=== PATIENT | male | born 1960 | race Caucasian/White ===

== ENCOUNTER 2017-12-20 05:35 | Day surgery (SDC) | payer OTHER ==
[2017-12-20] MEDS: BUPIVACAINE 0.5% (MPF) 30 ML INJ INJ
[2017-12-20] MEDS: POLYMYXIN/BACITRACIN 1L IRRIG
[2017-12-20] MEDS ORDERED: BUPIVACAINE 0.5% (SDV) 30 ML INJ (06:50)
[2017-12-20] MEDS ORDERED: ONDANSETRON 4 MG INJ IV (08:00)
[2017-12-20] MEDS ORDERED: hydrALAzine 20 MG INJ IV (08:00)
[2017-12-20] MEDS ORDERED: LABETALOL HCL 20MG INJ IV (08:00)
[2017-12-20] MEDS ORDERED: DIPHENHYDRAMINE 50 MG INJ IV (08:00)
[2017-12-20] MEDS ORDERED: EPHEDrine SULFATE 50 MG/5 ML SYG IV (08:00)
[2017-12-20] MEDS ORDERED: MEPERIDINE 25 MG INJ IV (08:00)
[2017-12-20] MEDS ORDERED: MIDAZOLAM 1 MG/ML 2 ML INJ IV (08:00)
[2017-12-20] MEDS ORDERED: ALBUTEROL 0.083% (NEB) 2.5 MG/3 ML AMP HHN (08:00)
[2017-12-20] MEDS ORDERED: OXYCODONE/ACETAMINOPHEN (5/325) TAB PO ×2 (08:00)
[2017-12-20] MEDS ORDERED: FENTAnyl 50 MCG/ML VIAL IV ×3 (08:00)
[2017-12-20] MEDS ORDERED: KETOROLAC 30 MG INJ IV (08:00)
[2017-12-20] MEDS ORDERED: HYDROmorphONE (0.2 MG/ML) 10ML SYG IV ×3 (08:00)
[2017-12-20] MEDS ORDERED: ROCURONIUM 50 MG INJ (08:06)
[2017-12-20] MEDS ORDERED: PROPOFOL 20 ML (08:06)
[2017-12-20] MEDS ORDERED: LIDOCAINE 100 MG SYRINGE (08:06)
[2017-12-20] MEDS ORDERED: CEFAZOLIN 1 GM INJ (08:06)
[2017-12-20] MEDS ORDERED: SUGAMMADEX SODIUM 200 MG/2 ML VIAL IV (08:33)
== END 2017-12-20 12:21 | disposition home or self-care (01) ==
LOC: SDS 05:35
DX: M20.42 Other hammer toe(s) (acquired), left foot (principal); L85.9 Epidermal thickening, unspecified; E11.42 Type 2 diabetes mellitus with diabetic polyneuropathy; Z89.432 Acquired absence of left foot
CPT/HCPCS: 28285; 73630-LT; 82962; 88304; 88311

== ENCOUNTER 2018-01-24 08:01 | Inpatient (IN) | payer OTHER ==
[2018-01-24] MEDS ORDERED: NACL 0.9% 3 ML SYG IV (09:00)
[2018-01-24] MEDS ORDERED: PENDING SANTYL ORDER FOR WOUND CARE XX (11:00)
[2018-01-24] MEDS ORDERED: VANCOMYCIN IV PER PHARMACY XX (11:00)
[2018-01-24] MEDS ORDERED: GLUCOSE GEL 15 GRAM TUBE BUCCAL (11:30)
[2018-01-24] MEDS ORDERED: GLUCAGON 1 MG INJ IM (11:30)
[2018-01-24] MEDS ORDERED: DEXTROSE 50% 50 ML SYRINGE IV ×2 (11:30)
[2018-01-24] MEDS ORDERED: GLUCOSE GEL 15 GRAM TUBE PO ×2 (11:30)
[2018-01-24 11:45] LABS: ADD MAN DIFF? NO
[2018-01-24 11:49] LABS: WHITE BLOOD COUNT 9.5 10^3/ul (4.8-10.8)
[2018-01-24 11:49] LABS: BASOPHIL # 0.1 10^3/ul (0.0-0.1); BASOPHILS % 0.6 % (0.0-2.0); EOSINOPHILS # 0.6 10^3/ul (0.0-0.5); EOSINOPHILS % 6.4 % (0.0-7.0); HEMATOCRIT 33.6 % (42.0-52.0); HEMOGLOBIN 11.4 g/dl (14.0-18.0); LYMPHOCYTES % 20.8 % (15.0-51.0); MEAN CORPUSCULAR HEMOGLOBIN 30.2 pg (29.0-33.0); MEAN CORPUSCULAR HGB CONC 33.9 g/dl (32.0-37.0); MEAN CORPUSCULAR VOLUME 89.1 fl (82.0-101.0); MEAN PLATELET VOLUME 9.2 fl (7.4-10.4); MONOCYTE # 0.9 10^3/ul (0.3-0.9); MONOCYTES % 9.7 % (0.0-11.0); NEUTROPHIL # 5.9 10^3/ul (1.6-7.5); NEUTROPHILS % 62.3 % (39.0-77.0); PLATELET COUNT 237 10^3/UL (140-415); RED BLOOD COUNT 3.77 10^6/ul (4.70-6.10); RED CELL DISTRIBUTION WIDTH 12.7 % (11.5-14.5)
[2018-01-24] MEDS: INSULIN ASPART [NOVOLOG] 3 ML PEN SC ×5 (12:00→21:00)
[2018-01-24 12:14] LABS: ALANINE AMINOTRANSFERASE 26 IU/L (13-69); ALBUMIN 3.9 g/dl (3.3-4.9); ALBUMIN/GLOBULIN RATIO 1.14; ALKALINE PHOSPHATASE 120 IU/L (42-121); ANION GAP 16 (8-16); ASPARTATE AMINO TRANSFERASE 21 IU/L (15-46); BILIRUBIN,INDIRECT 0.3 mg/dl (0-1.1); BILIRUBIN,TOTAL 0.3 mg/dl (0.2-1.3); BLOOD UREA NITROGEN 43 mg/dl (7-20); C-REACTIVE PROTEIN 1.3 mg/dl (0.0-0.9); CALCIUM 9.1 mg/dl (8.4-10.2); CARBON DIOXIDE 26 mmol/L (21-31); CHLORIDE 104 mmol/L (97-110); CREATININE 2.29 mg/dl (0.61-1.24); GLUCOSE 148 mg/dl (70-220); MAGNESIUM 1.9 mg/dl (1.7-2.5); PHOSPHORUS 3.5 mg/dl (2.5-4.9); POTASSIUM 4.6 mmol/L (3.5-5.1); SODIUM 141 mmol/L (135-144); TOTAL PROTEIN 7.3 g/dl (6.1-8.1)
[2018-01-24 12:42] LABS: HEMOGLOBIN A1C 5.9 % (0-5.9)
[2018-01-24] MEDS: VANCOMYCIN 1.5 GM in SOD CHLORIDE 0.9% 250 ML IVPB (12:42)
[2018-01-24 12:58] LABS: ERYTHROCYTE SEDIMENTATION RATE 41 mm/Hr (0-20)
[2018-01-24] MEDS: HEPARIN 5,000 UNIT/0.5 ML VIAL SC ×2 (15:13→21:06)
[2018-01-24] MEDS: FERROUS SULFATE (EC) 325 MG TAB PO (17:41)
[2018-01-24] MEDS: LOSARTAN 50 MG TAB PO (21:03)
[2018-01-25 05:55] LABS: ADD MAN DIFF? NO
[2018-01-25] MEDS: HEPARIN 5,000 UNIT/0.5 ML VIAL SC ×3 (06:04→23:51)
[2018-01-25 06:06] LABS: WHITE BLOOD COUNT 7.1 10^3/ul (4.8-10.8)
[2018-01-25 06:06] LABS: BASOPHILS % 0.6 % (0.0-2.0); EOSINOPHILS # 0.7 10^3/ul (0.0-0.5); EOSINOPHILS % 9.3 % (0.0-7.0); HEMATOCRIT 32.4 % (42.0-52.0); LYMPHOCYTES # 2.2 10^3/ul (0.8-2.9); LYMPHOCYTES % 30.4 % (15.0-51.0); MEAN CORPUSCULAR HEMOGLOBIN 30.5 pg (29.0-33.0); MEAN CORPUSCULAR VOLUME 89.8 fl (82.0-101.0); MEAN PLATELET VOLUME 9.3 fl (7.4-10.4); MONOCYTES % 14.2 % (0.0-11.0); NEUTROPHIL # 3.2 10^3/ul (1.6-7.5); NEUTROPHILS % 45.4 % (39.0-77.0); PLATELET COUNT 230 10^3/UL (140-415); RED BLOOD COUNT 3.61 10^6/ul (4.70-6.10); RED CELL DISTRIBUTION WIDTH 12.4 % (11.5-14.5)
[2018-01-25 06:32] LABS: PHOSPHORUS 3.7 mg/dl (2.5-4.9)
[2018-01-25 06:32] LABS: CHOL/HDL RATIO 1.9 RATIO; CHOLESTEROL 119 mg/dl (100-200); HDL CHOLESTEROL 60 mg/dl (28-71); LDL CHOLESTEROL,CALCULATED 43 mg/dl; MAGNESIUM 1.8 mg/dl (1.7-2.5); TRIGLYCERIDES 81 mg/dl (0-149)
[2018-01-25 06:42] LABS: ANION GAP 13 (8-16); BLOOD UREA NITROGEN 39 mg/dl (7-20); CALCIUM 9.1 mg/dl (8.4-10.2); CARBON DIOXIDE 29 mmol/L (21-31); CHLORIDE 104 mmol/L (97-110); CREATININE 2.12 mg/dl (0.61-1.24); GLUCOSE 63 mg/dl (70-220); SODIUM 141 mmol/L (135-144)
[2018-01-25] MEDS: INSULIN ASPART [NOVOLOG] 3 ML PEN SC ×7 (08:00→20:15)
[2018-01-25] MEDS: FERROUS SULFATE (EC) 325 MG TAB PO ×2 (08:13→17:12)
[2018-01-25] MEDS: MULTIVITAMINS THERAPEUTIC TAB PO (11:58)
[2018-01-25] MEDS: CITALOPRAM 20 MG TAB PO (11:59)
[2018-01-25] MEDS: LOSARTAN 50 MG TAB PO ×2 (12:00→20:39)
[2018-01-25] MEDS: AMLODIPINE 10 MG TAB PO (12:00)
[2018-01-25] MEDS: VANCOMYCIN 1.25 GM in SOD CHLORIDE 0.9% 250 ML IVPB (12:01)
[2018-01-25] MEDS: ASPIRIN 81 MG TAB PO (12:21)
[2018-01-25] MEDS ORDERED: VANCOMYCIN 750 MG in DEXTROSE 5% 150 ML IVPB (13:00)
[2018-01-26] MEDS: HEPARIN 5,000 UNIT/0.5 ML VIAL SC ×3 (05:49→21:59)
[2018-01-26 06:02] LABS: ADD MAN DIFF? NO
[2018-01-26 06:07] LABS: BASOPHILS % 0.6 % (0.0-2.0); EOSINOPHILS # 0.6 10^3/ul (0.0-0.5); HEMATOCRIT 31.8 % (42.0-52.0); HEMOGLOBIN 10.8 g/dl (14.0-18.0); LYMPHOCYTES % 30.3 % (15.0-51.0); MEAN CORPUSCULAR HEMOGLOBIN 30.2 pg (29.0-33.0); MEAN CORPUSCULAR VOLUME 88.8 fl (82.0-101.0); MEAN PLATELET VOLUME 9.1 fl (7.4-10.4); MONOCYTE # 0.9 10^3/ul (0.3-0.9); MONOCYTES % 14.1 % (0.0-11.0); NEUTROPHILS % 45.7 % (39.0-77.0); PLATELET COUNT 232 10^3/UL (140-415); RED BLOOD COUNT 3.58 10^6/ul (4.70-6.10); RED CELL DISTRIBUTION WIDTH 12.4 % (11.5-14.5)
[2018-01-26 06:07] LABS: WHITE BLOOD COUNT 6.6 10^3/ul (4.8-10.8)
[2018-01-26 06:42] LABS: ANION GAP 14 (8-16); BLOOD UREA NITROGEN 47 mg/dl (7-20); CALCIUM 9.2 mg/dl (8.4-10.2); CARBON DIOXIDE 29 mmol/L (21-31); CHLORIDE 104 mmol/L (97-110); CREATININE 2.23 mg/dl (0.61-1.24); GLUCOSE 102 mg/dl (70-220); POTASSIUM 5.6 mmol/L (3.5-5.1); SODIUM 141 mmol/L (135-144)
[2018-01-26 06:52] LABS: MAGNESIUM 1.8 mg/dl (1.7-2.5)
[2018-01-26 06:52] LABS: PHOSPHORUS 4.7 mg/dl (2.5-4.9)
[2018-01-26] MEDS: INSULIN ASPART [NOVOLOG] 3 ML PEN SC ×7 (08:00→21:00)
[2018-01-26] MEDS: FERROUS SULFATE (EC) 325 MG TAB PO ×2 (09:50→18:02)
[2018-01-26] MEDS: ASPIRIN 81 MG TAB PO (09:50)
[2018-01-26] MEDS: CITALOPRAM 20 MG TAB PO (09:50)
[2018-01-26] MEDS: AMLODIPINE 10 MG TAB PO (09:52)
[2018-01-26] MEDS: MULTIVITAMINS THERAPEUTIC TAB PO (09:52)
[2018-01-26] MEDS: NA POLYST SULFON 15 GM/60 ML BTL PO (09:58)
[2018-01-26] MEDS: VANCOMYCIN 1.25 GM in SOD CHLORIDE 0.9% 250 ML IVPB (12:09)
[2018-01-26] MEDS ORDERED: NA POLYST SULFON 15 GM/60 ML BTL PO (12:30)
[2018-01-27 06:11] LABS: ADD MAN DIFF? NO
[2018-01-27 06:18] LABS: BASOPHIL # 0.1 10^3/ul (0.0-0.1); EOSINOPHILS # 0.5 10^3/ul (0.0-0.5); EOSINOPHILS % 8.6 % (0.0-7.0); HEMATOCRIT 31.7 % (42.0-52.0); HEMOGLOBIN 10.6 g/dl (14.0-18.0); LYMPHOCYTES % 32.3 % (15.0-51.0); MEAN CORPUSCULAR HEMOGLOBIN 29.7 pg (29.0-33.0); MEAN CORPUSCULAR HGB CONC 33.4 g/dl (32.0-37.0); MEAN CORPUSCULAR VOLUME 88.8 fl (82.0-101.0); MEAN PLATELET VOLUME 9.3 fl (7.4-10.4); MONOCYTE # 0.9 10^3/ul (0.3-0.9); MONOCYTES % 14.1 % (0.0-11.0); NEUTROPHIL # 2.8 10^3/ul (1.6-7.5); NEUTROPHILS % 43.8 % (39.0-77.0); PLATELET COUNT 236 10^3/UL (140-415); RED BLOOD COUNT 3.57 10^6/ul (4.70-6.10); RED CELL DISTRIBUTION WIDTH 12.3 % (11.5-14.5)
[2018-01-27 06:18] LABS: WHITE BLOOD COUNT 6.3 10^3/ul (4.8-10.8)
[2018-01-27] MEDS: HEPARIN 5,000 UNIT/0.5 ML VIAL SC ×3 (06:36→22:06)
[2018-01-27 06:38] LABS: ANION GAP 10 (8-16); BLOOD UREA NITROGEN 48 mg/dl (7-20); CALCIUM 9.3 mg/dl (8.4-10.2); CARBON DIOXIDE 31 mmol/L (21-31); CHLORIDE 104 mmol/L (97-110); CREATININE 2.31 mg/dl (0.61-1.24); GLUCOSE 111 mg/dl (70-220); SODIUM 139 mmol/L (135-144)
[2018-01-27 06:50] LABS: PHOSPHORUS 4.9 mg/dl (2.5-4.9)
[2018-01-27 06:50] LABS: MAGNESIUM 1.8 mg/dl (1.7-2.5)
[2018-01-27] MEDS: INSULIN ASPART [NOVOLOG] 3 ML PEN SC ×7 (08:00→21:00)
[2018-01-27] MEDS: CITALOPRAM 20 MG TAB PO (08:32)
[2018-01-27] MEDS: FERROUS SULFATE (EC) 325 MG TAB PO ×2 (08:32→17:50)
[2018-01-27] MEDS: AMLODIPINE 10 MG TAB PO (08:32)
[2018-01-27] MEDS: MULTIVITAMINS THERAPEUTIC TAB PO (08:32)
[2018-01-27] MEDS: ASPIRIN 81 MG TAB PO (08:32)
[2018-01-27 12:29] LABS: VANCOMYCIN,TROUGH 19.6 ug/ml (10.0-20.0)
[2018-01-27] MEDS: VANCOMYCIN 750 MG in DEXTROSE 5% 150 ML IVPB (13:20)
[2018-01-27] MEDS: NA POLYST SULFON 15 GM/60 ML BTL PO (17:50)
[2018-01-28] MEDS: HEPARIN 5,000 UNIT/0.5 ML VIAL SC ×3 (05:32→21:35)
[2018-01-28 06:16] LABS: ADD MAN DIFF? NO
[2018-01-28 06:20] LABS: BASOPHILS % 0.6 % (0.0-2.0); EOSINOPHILS # 0.5 10^3/ul (0.0-0.5); EOSINOPHILS % 8.3 % (0.0-7.0); HEMATOCRIT 31.4 % (42.0-52.0); HEMOGLOBIN 10.7 g/dl (14.0-18.0); MEAN CORPUSCULAR HEMOGLOBIN 30.3 pg (29.0-33.0); MEAN CORPUSCULAR HGB CONC 34.1 g/dl (32.0-37.0); MEAN PLATELET VOLUME 9.1 fl (7.4-10.4); MONOCYTE # 0.8 10^3/ul (0.3-0.9); MONOCYTES % 13.2 % (0.0-11.0); NEUTROPHIL # 2.9 10^3/ul (1.6-7.5); NEUTROPHILS % 45.6 % (39.0-77.0); PLATELET COUNT 245 10^3/UL (140-415); RED BLOOD COUNT 3.53 10^6/ul (4.70-6.10); RED CELL DISTRIBUTION WIDTH 12.3 % (11.5-14.5)
[2018-01-28 06:20] LABS: WHITE BLOOD COUNT 6.4 10^3/ul (4.8-10.8)
[2018-01-28 06:38] LABS: ANION GAP 13 (8-16); BLOOD UREA NITROGEN 45 mg/dl (7-20); CALCIUM 8.8 mg/dl (8.4-10.2); CARBON DIOXIDE 29 mmol/L (21-31); CHLORIDE 104 mmol/L (97-110); CREATININE 2.26 mg/dl (0.61-1.24); GLUCOSE 112 mg/dl (70-220); POTASSIUM 4.2 mmol/L (3.5-5.1); SODIUM 142 mmol/L (135-144)
[2018-01-28 06:46] LABS: MAGNESIUM 1.8 mg/dl (1.7-2.5)
[2018-01-28] MEDS: INSULIN ASPART [NOVOLOG] 3 ML PEN SC ×7 (07:57→20:42)
[2018-01-28] MEDS: MULTIVITAMINS THERAPEUTIC TAB PO (08:20)
[2018-01-28] MEDS: FERROUS SULFATE (EC) 325 MG TAB PO ×2 (08:21→17:23)
[2018-01-28] MEDS: ASPIRIN 81 MG TAB PO (08:21)
[2018-01-28] MEDS: CITALOPRAM 20 MG TAB PO (08:21)
[2018-01-28] MEDS: AMLODIPINE 10 MG TAB PO (08:21)
[2018-01-28] MEDS: LIDOCAINE 1% (MPF) 5 ML VIAL SC (11:40)
[2018-01-28] MEDS: SOD CHLORIDE 0.9% 100 ML (12:05)
[2018-01-28] MEDS: VANCOMYCIN 750 MG in DEXTROSE 5% 150 ML IVPB (14:16)
[2018-01-28] MEDS: HYDROCODONE/APAP (5/325) TAB PO (14:26)
[2018-01-28] MEDS: ACETAMINOPHEN 325 MG TAB PO (20:41)
[2018-01-29] MEDS: HEPARIN 5,000 UNIT/0.5 ML VIAL SC ×3 (06:15→21:39)
[2018-01-29 07:13] LABS: ADD MAN DIFF? NO
[2018-01-29 07:21] LABS: WHITE BLOOD COUNT 7.5 10^3/ul (4.8-10.8)
[2018-01-29 07:21] LABS: BASOPHIL # 0.1 10^3/ul (0.0-0.1); BASOPHILS % 0.8 % (0.0-2.0); EOSINOPHILS # 0.6 10^3/ul (0.0-0.5); EOSINOPHILS % 7.7 % (0.0-7.0); HEMATOCRIT 33.2 % (42.0-52.0); HEMOGLOBIN 11.2 g/dl (14.0-18.0); LYMPHOCYTES # 2.4 10^3/ul (0.8-2.9); LYMPHOCYTES % 32.6 % (15.0-51.0); MEAN CORPUSCULAR HEMOGLOBIN 29.8 pg (29.0-33.0); MEAN CORPUSCULAR HGB CONC 33.7 g/dl (32.0-37.0); MEAN CORPUSCULAR VOLUME 88.3 fl (82.0-101.0); MEAN PLATELET VOLUME 9.1 fl (7.4-10.4); MONOCYTE # 0.8 10^3/ul (0.3-0.9); MONOCYTES % 11.3 % (0.0-11.0); NEUTROPHIL # 3.5 10^3/ul (1.6-7.5); NEUTROPHILS % 47.2 % (39.0-77.0); PLATELET COUNT 253 10^3/UL (140-415); RED BLOOD COUNT 3.76 10^6/ul (4.70-6.10); RED CELL DISTRIBUTION WIDTH 12.5 % (11.5-14.5)
[2018-01-29 07:44] LABS: MAGNESIUM 1.9 mg/dl (1.7-2.5)
[2018-01-29 07:44] LABS: PHOSPHORUS 4.3 mg/dl (2.5-4.9)
[2018-01-29 07:47] LABS: ANION GAP 15 (8-16); BLOOD UREA NITROGEN 60 mg/dl (7-20); CALCIUM 9.4 mg/dl (8.4-10.2); CARBON DIOXIDE 26 mmol/L (21-31); CHLORIDE 103 mmol/L (97-110); CREATININE 2.22 mg/dl (0.61-1.24); GLUCOSE 137 mg/dl (70-220); POTASSIUM 4.6 mmol/L (3.5-5.1); SODIUM 139 mmol/L (135-144)
[2018-01-29] MEDS: INSULIN ASPART [NOVOLOG] 3 ML PEN SC ×7 (07:58→21:00)
[2018-01-29] MEDS: FERROUS SULFATE (EC) 325 MG TAB PO ×2 (08:18→17:24)
[2018-01-29] MEDS: ASPIRIN 81 MG TAB PO (08:18)
[2018-01-29] MEDS: MULTIVITAMINS THERAPEUTIC TAB PO (08:18)
[2018-01-29] MEDS: CITALOPRAM 20 MG TAB PO (08:18)
[2018-01-29] MEDS: AMLODIPINE 10 MG TAB PO (08:19)
[2018-01-29] MEDS: SOD CHLORIDE 0.9% 1,000 ML IV (09:11)
[2018-01-29] MEDS: VANCOMYCIN 750 MG in DEXTROSE 5% 150 ML IVPB (14:11)
[2018-01-30] MEDS: HEPARIN 5,000 UNIT/0.5 ML VIAL SC ×3 (06:17→22:07)
[2018-01-30 07:28] LABS: ANION GAP 14 (8-16); BLOOD UREA NITROGEN 66 mg/dl (7-20); CALCIUM 9.2 mg/dl (8.4-10.2); CARBON DIOXIDE 25 mmol/L (21-31); CHLORIDE 105 mmol/L (97-110); CREATININE 2.03 mg/dl (0.61-1.24); GLUCOSE 103 mg/dl (70-220); POTASSIUM 4.7 mmol/L (3.5-5.1); SODIUM 139 mmol/L (135-144)
[2018-01-30 07:35] LABS: MAGNESIUM 1.9 mg/dl (1.7-2.5)
[2018-01-30] MEDS: FERROUS SULFATE (EC) 325 MG TAB PO ×2 (08:49→18:05)
[2018-01-30] MEDS: AMLODIPINE 10 MG TAB PO (08:50)
[2018-01-30] MEDS: MULTIVITAMINS THERAPEUTIC TAB PO (08:50)
[2018-01-30] MEDS: CITALOPRAM 20 MG TAB PO (08:50)
[2018-01-30] MEDS: ASPIRIN 81 MG TAB PO (08:50)
[2018-01-30] MEDS: INSULIN ASPART [NOVOLOG] 3 ML PEN SC ×7 (08:52→21:00)
[2018-01-30] MEDS: DAPTOMYCIN 300 MG in SOD CHLORIDE 0.9% 100 ML IVPB (14:55)
[2018-01-31] MEDS: LEVOFLOXACIN 250 MG TAB PO (06:45)
[2018-01-31] MEDS: HEPARIN 5,000 UNIT/0.5 ML VIAL SC ×3 (06:46→21:59)
[2018-01-31 06:48] LABS: ANION GAP 15 (8-16); BLOOD UREA NITROGEN 82 mg/dl (7-20); CALCIUM 9.3 mg/dl (8.4-10.2); CARBON DIOXIDE 25 mmol/L (21-31); CHLORIDE 104 mmol/L (97-110); CREATININE 2.42 mg/dl (0.61-1.24); GLUCOSE 103 mg/dl (70-220); POTASSIUM 4.7 mmol/L (3.5-5.1); SODIUM 139 mmol/L (135-144)
[2018-01-31] MEDS: INSULIN ASPART [NOVOLOG] 3 ML PEN SC ×7 (08:00→21:02)
[2018-01-31] MEDS: FERROUS SULFATE (EC) 325 MG TAB PO ×2 (08:01→17:36)
[2018-01-31] MEDS: AMLODIPINE 10 MG TAB PO (09:03)
[2018-01-31] MEDS: CITALOPRAM 20 MG TAB PO (09:03)
[2018-01-31] MEDS: MULTIVITAMINS THERAPEUTIC TAB PO (09:03)
[2018-01-31] MEDS: ASPIRIN 81 MG TAB PO (09:03)
[2018-01-31] MEDS: SOD CHLORIDE 0.9% 1,000 ML IV (11:12)
[2018-01-31] MEDS: DAPTOMYCIN 300 MG in SOD CHLORIDE 0.9% 100 ML IVPB (13:20)
[2018-02-01] MEDS: SOD CHLORIDE 0.9% 1,000 ML IV ×3 (00:26→23:37)
[2018-02-01] MEDS: LEVOFLOXACIN 250 MG TAB PO (05:38)
[2018-02-01] MEDS: HEPARIN 5,000 UNIT/0.5 ML VIAL SC ×3 (05:39→21:25)
[2018-02-01 06:07] LABS: ADD MAN DIFF? NO
[2018-02-01 06:10] LABS: WHITE BLOOD COUNT 6.3 10^3/ul (4.8-10.8)
[2018-02-01 06:10] LABS: BASOPHIL # 0.1 10^3/ul (0.0-0.1); BASOPHILS % 0.8 % (0.0-2.0); EOSINOPHILS # 0.4 10^3/ul (0.0-0.5); EOSINOPHILS % 6.5 % (0.0-7.0); HEMATOCRIT 29.5 % (42.0-52.0); LYMPHOCYTES % 31.4 % (15.0-51.0); MEAN CORPUSCULAR HEMOGLOBIN 30.2 pg (29.0-33.0); MEAN CORPUSCULAR HGB CONC 33.9 g/dl (32.0-37.0); MEAN CORPUSCULAR VOLUME 89.1 fl (82.0-101.0); MEAN PLATELET VOLUME 9.3 fl (7.4-10.4); MONOCYTE # 0.8 10^3/ul (0.3-0.9); MONOCYTES % 12.8 % (0.0-11.0); NEUTROPHIL # 3.1 10^3/ul (1.6-7.5); NEUTROPHILS % 48.2 % (39.0-77.0); PLATELET COUNT 216 10^3/UL (140-415); RED BLOOD COUNT 3.31 10^6/ul (4.70-6.10); RED CELL DISTRIBUTION WIDTH 12.8 % (11.5-14.5)
[2018-02-01 06:27] LABS: ANION GAP 15 (8-16); BLOOD UREA NITROGEN 75 mg/dl (7-20); CALCIUM 8.8 mg/dl (8.4-10.2); CARBON DIOXIDE 23 mmol/L (21-31); CHLORIDE 107 mmol/L (97-110); GLUCOSE 111 mg/dl (70-220); POTASSIUM 4.7 mmol/L (3.5-5.1); SODIUM 140 mmol/L (135-144)
[2018-02-01 07:02] LABS: CREATINE KINASE 49 IU/L (23-200)
[2018-02-01] MEDS: INSULIN ASPART [NOVOLOG] 3 ML PEN SC ×7 (08:00→21:00)
[2018-02-01] MEDS: FERROUS SULFATE (EC) 325 MG TAB PO ×2 (08:32→17:21)
[2018-02-01] MEDS: ASPIRIN 81 MG TAB PO (08:33)
[2018-02-01] MEDS: CITALOPRAM 20 MG TAB PO (08:35)
[2018-02-01] MEDS: AMLODIPINE 10 MG TAB PO (08:36)
[2018-02-01] MEDS: MULTIVITAMINS THERAPEUTIC TAB PO (08:37)
[2018-02-01] MEDS: DAPTOMYCIN 500 MG in SOD CHLORIDE 0.9% 100 ML IVPB (12:20)
[2018-02-01] MEDS: HYDROCODONE/APAP (5/325) TAB PO (16:01)
[2018-02-02] MEDS: LEVOFLOXACIN 250 MG TAB PO (05:07)
[2018-02-02] MEDS: HEPARIN 5,000 UNIT/0.5 ML VIAL SC ×3 (05:09→20:34)
[2018-02-02 06:51] LABS: ADD MAN DIFF? NO
[2018-02-02 06:56] LABS: BASOPHIL # 0.1 10^3/ul (0.0-0.1); BASOPHILS % 0.7 % (0.0-2.0); EOSINOPHILS # 0.5 10^3/ul (0.0-0.5); EOSINOPHILS % 6.4 % (0.0-7.0); HEMATOCRIT 30.5 % (42.0-52.0); HEMOGLOBIN 10.3 g/dl (14.0-18.0); LYMPHOCYTES # 2.2 10^3/ul (0.8-2.9); LYMPHOCYTES % 30.7 % (15.0-51.0); MEAN CORPUSCULAR HEMOGLOBIN 30.2 pg (29.0-33.0); MEAN CORPUSCULAR HGB CONC 33.8 g/dl (32.0-37.0); MEAN CORPUSCULAR VOLUME 89.4 fl (82.0-101.0); MEAN PLATELET VOLUME 9.6 fl (7.4-10.4); MONOCYTE # 0.8 10^3/ul (0.3-0.9); MONOCYTES % 11.7 % (0.0-11.0); NEUTROPHIL # 3.6 10^3/ul (1.6-7.5); NEUTROPHILS % 50.2 % (39.0-77.0); PLATELET COUNT 223 10^3/UL (140-415); RED BLOOD COUNT 3.41 10^6/ul (4.70-6.10); RED CELL DISTRIBUTION WIDTH 12.7 % (11.5-14.5)
[2018-02-02 06:56] LABS: WHITE BLOOD COUNT 7.2 10^3/ul (4.8-10.8)
[2018-02-02 07:39] LABS: ANION GAP 12 (8-16); BLOOD UREA NITROGEN 72 mg/dl (7-20); CALCIUM 9.1 mg/dl (8.4-10.2); CARBON DIOXIDE 25 mmol/L (21-31); CHLORIDE 106 mmol/L (97-110); CREATININE 2.28 mg/dl (0.61-1.24); GLUCOSE 123 mg/dl (70-220); POTASSIUM 4.7 mmol/L (3.5-5.1); SODIUM 138 mmol/L (135-144)
[2018-02-02] MEDS: INSULIN ASPART [NOVOLOG] 3 ML PEN SC ×7 (08:29→20:35)
[2018-02-02] MEDS: ASPIRIN 81 MG TAB PO (08:31)
[2018-02-02] MEDS: MULTIVITAMINS THERAPEUTIC TAB PO (08:31)
[2018-02-02] MEDS: CITALOPRAM 20 MG TAB PO (08:31)
[2018-02-02] MEDS: FERROUS SULFATE (EC) 325 MG TAB PO ×2 (08:31→17:43)
[2018-02-02] MEDS: AMLODIPINE 10 MG TAB PO (08:34)
[2018-02-02] MEDS: SOD CHLORIDE 0.9% 1,000 ML IV (11:14)
[2018-02-02] MEDS: DAPTOMYCIN 500 MG in SOD CHLORIDE 0.9% 100 ML IVPB (12:04)
[2018-02-03] MEDS: SOD CHLORIDE 0.9% 1,000 ML IV ×2 (01:30→05:28)
[2018-02-03] MEDS: LEVOFLOXACIN 250 MG TAB PO (05:28)
[2018-02-03] MEDS: HEPARIN 5,000 UNIT/0.5 ML VIAL SC ×3 (05:29→21:16)
[2018-02-03] MEDS: INSULIN ASPART [NOVOLOG] 3 ML PEN SC ×7 (08:00→21:00)
[2018-02-03] MEDS: FERROUS SULFATE (EC) 325 MG TAB PO ×2 (08:10→17:20)
[2018-02-03] MEDS: CITALOPRAM 20 MG TAB PO (08:11)
[2018-02-03] MEDS: ASPIRIN 81 MG TAB PO (08:11)
[2018-02-03] MEDS: AMLODIPINE 10 MG TAB PO (08:11)
[2018-02-03] MEDS: MULTIVITAMINS THERAPEUTIC TAB PO (08:15)
[2018-02-03] MEDS: LACTOBACILLUS RHAMNOSUS CAP PO ×2 (11:00→21:15)
[2018-02-03] MEDS ORDERED: BISACODYL 10 MG SUPP PR (11:00)
[2018-02-03] MEDS: DAPTOMYCIN 500 MG in SOD CHLORIDE 0.9% 100 ML IVPB (12:13)
[2018-02-03] MEDS: DOCUSATE SODIUM 100 MG CAP PO (12:17)
[2018-02-04] MEDS: SOD CHLORIDE 0.9% 1,000 ML IV (00:47)
[2018-02-04] MEDS: LEVOFLOXACIN 250 MG TAB PO (06:03)
[2018-02-04] MEDS: HEPARIN 5,000 UNIT/0.5 ML VIAL SC ×3 (06:11→20:58)
[2018-02-04 06:25] LABS: ADD MAN DIFF? NO
[2018-02-04 06:31] LABS: BASOPHIL # 0.1 10^3/ul (0.0-0.1); BASOPHILS % 0.7 % (0.0-2.0); EOSINOPHILS # 0.5 10^3/ul (0.0-0.5); EOSINOPHILS % 7.4 % (0.0-7.0); HEMATOCRIT 30.2 % (42.0-52.0); HEMOGLOBIN 10.2 g/dl (14.0-18.0); LYMPHOCYTES # 2.4 10^3/ul (0.8-2.9); LYMPHOCYTES % 34.2 % (15.0-51.0); MEAN CORPUSCULAR HEMOGLOBIN 29.7 pg (29.0-33.0); MEAN CORPUSCULAR HGB CONC 33.8 g/dl (32.0-37.0); MEAN PLATELET VOLUME 9.5 fl (7.4-10.4); MONOCYTE # 0.8 10^3/ul (0.3-0.9); MONOCYTES % 11.6 % (0.0-11.0); NEUTROPHIL # 3.2 10^3/ul (1.6-7.5); NEUTROPHILS % 45.7 % (39.0-77.0); PLATELET COUNT 213 10^3/UL (140-415); RED BLOOD COUNT 3.43 10^6/ul (4.70-6.10); RED CELL DISTRIBUTION WIDTH 12.8 % (11.5-14.5)
[2018-02-04 07:35] LABS: ANION GAP 10 (8-16); BLOOD UREA NITROGEN 55 mg/dl (7-20); CARBON DIOXIDE 27 mmol/L (21-31); CHLORIDE 109 mmol/L (97-110); CREATININE 2.24 mg/dl (0.61-1.24); GLUCOSE 112 mg/dl (70-220); POTASSIUM 4.6 mmol/L (3.5-5.1); SODIUM 141 mmol/L (135-144)
[2018-02-04] MEDS: FERROUS SULFATE (EC) 325 MG TAB PO ×2 (08:06→17:32)
[2018-02-04] MEDS: ASPIRIN 81 MG TAB PO (08:06)
[2018-02-04] MEDS: CITALOPRAM 20 MG TAB PO (08:06)
[2018-02-04] MEDS: LACTOBACILLUS RHAMNOSUS CAP PO ×2 (08:06→20:56)
[2018-02-04] MEDS: MULTIVITAMINS THERAPEUTIC TAB PO (08:06)
[2018-02-04] MEDS: AMLODIPINE 10 MG TAB PO (08:07)
[2018-02-04] MEDS: INSULIN ASPART [NOVOLOG] 3 ML PEN SC ×7 (08:11→21:00)
[2018-02-04] MEDS: DAPTOMYCIN 500 MG in SOD CHLORIDE 0.9% 100 ML IVPB (12:14)
[2018-02-05 06:00] LABS: ADD MAN DIFF? NO
[2018-02-05] MEDS: LEVOFLOXACIN 250 MG TAB PO (06:06)
[2018-02-05] MEDS: HEPARIN 5,000 UNIT/0.5 ML VIAL SC ×3 (06:10→22:13)
[2018-02-05 06:14] LABS: WHITE BLOOD COUNT 6.9 10^3/ul (4.8-10.8)
[2018-02-05 06:14] LABS: BASOPHIL # 0.1 10^3/ul (0.0-0.1); BASOPHILS % 0.7 % (0.0-2.0); EOSINOPHILS # 0.5 10^3/ul (0.0-0.5); EOSINOPHILS % 7.8 % (0.0-7.0); HEMATOCRIT 31.3 % (42.0-52.0); HEMOGLOBIN 10.5 g/dl (14.0-18.0); LYMPHOCYTES # 2.2 10^3/ul (0.8-2.9); LYMPHOCYTES % 32.4 % (15.0-51.0); MEAN CORPUSCULAR HEMOGLOBIN 29.9 pg (29.0-33.0); MEAN CORPUSCULAR HGB CONC 33.5 g/dl (32.0-37.0); MEAN CORPUSCULAR VOLUME 89.2 fl (82.0-101.0); MEAN PLATELET VOLUME 9.5 fl (7.4-10.4); MONOCYTE # 0.7 10^3/ul (0.3-0.9); MONOCYTES % 10.6 % (0.0-11.0); NEUTROPHIL # 3.3 10^3/ul (1.6-7.5); NEUTROPHILS % 47.9 % (39.0-77.0); PLATELET COUNT 213 10^3/UL (140-415); RED BLOOD COUNT 3.51 10^6/ul (4.70-6.10); RED CELL DISTRIBUTION WIDTH 12.8 % (11.5-14.5)
[2018-02-05 06:50] LABS: ANION GAP 12 (8-16); BLOOD UREA NITROGEN 68 mg/dl (7-20); CALCIUM 9.2 mg/dl (8.4-10.2); CARBON DIOXIDE 26 mmol/L (21-31); CHLORIDE 107 mmol/L (97-110); CREATININE 2.34 mg/dl (0.61-1.24); GLUCOSE 115 mg/dl (70-220); POTASSIUM 4.6 mmol/L (3.5-5.1); SODIUM 140 mmol/L (135-144)
[2018-02-05] MEDS: INSULIN ASPART [NOVOLOG] 3 ML PEN SC ×7 (07:55→21:00)
[2018-02-05] MEDS: CITALOPRAM 20 MG TAB PO (08:21)
[2018-02-05] MEDS: ASPIRIN 81 MG TAB PO (08:21)
[2018-02-05] MEDS: LACTOBACILLUS RHAMNOSUS CAP PO ×2 (08:21→21:07)
[2018-02-05] MEDS: MULTIVITAMINS THERAPEUTIC TAB PO (08:21)
[2018-02-05] MEDS: FERROUS SULFATE (EC) 325 MG TAB PO ×2 (08:21→18:02)
[2018-02-05] MEDS: AMLODIPINE 10 MG TAB PO (08:22)
[2018-02-05] MEDS: DAPTOMYCIN 500 MG in SOD CHLORIDE 0.9% 100 ML IVPB (12:19)
[2018-02-06 05:19] LABS: ADD MAN DIFF? NO
[2018-02-06 05:22] LABS: BASOPHILS % 0.4 % (0.0-2.0); EOSINOPHILS # 0.5 10^3/ul (0.0-0.5); EOSINOPHILS % 7.4 % (0.0-7.0); HEMATOCRIT 31.3 % (42.0-52.0); HEMOGLOBIN 10.5 g/dl (14.0-18.0); LYMPHOCYTES # 2.2 10^3/ul (0.8-2.9); LYMPHOCYTES % 32.5 % (15.0-51.0); MEAN CORPUSCULAR HEMOGLOBIN 29.7 pg (29.0-33.0); MEAN CORPUSCULAR HGB CONC 33.5 g/dl (32.0-37.0); MEAN CORPUSCULAR VOLUME 88.7 fl (82.0-101.0); MEAN PLATELET VOLUME 9.4 fl (7.4-10.4); MONOCYTE # 0.8 10^3/ul (0.3-0.9); MONOCYTES % 11.6 % (0.0-11.0); NEUTROPHIL # 3.3 10^3/ul (1.6-7.5); PLATELET COUNT 216 10^3/UL (140-415); RED BLOOD COUNT 3.53 10^6/ul (4.70-6.10)
[2018-02-06 05:22] LABS: WHITE BLOOD COUNT 6.8 10^3/ul (4.8-10.8)
[2018-02-06] MEDS: LEVOFLOXACIN 250 MG TAB PO (05:47)
[2018-02-06 05:48] LABS: ANION GAP 14 (8-16); BLOOD UREA NITROGEN 65 mg/dl (7-20); CALCIUM 9.3 mg/dl (8.4-10.2); CARBON DIOXIDE 24 mmol/L (21-31); CHLORIDE 107 mmol/L (97-110); CREATININE 2.46 mg/dl (0.61-1.24); GLUCOSE 128 mg/dl (70-220); POTASSIUM 4.7 mmol/L (3.5-5.1); SODIUM 140 mmol/L (135-144)
[2018-02-06] MEDS: HEPARIN 5,000 UNIT/0.5 ML VIAL SC ×3 (05:51→22:05)
[2018-02-06] MEDS: INSULIN ASPART [NOVOLOG] 3 ML PEN SC ×7 (08:05→21:10)
[2018-02-06] MEDS: LACTOBACILLUS RHAMNOSUS CAP PO ×2 (09:06→21:07)
[2018-02-06] MEDS: MULTIVITAMINS THERAPEUTIC TAB PO (09:06)
[2018-02-06] MEDS: FERROUS SULFATE (EC) 325 MG TAB PO ×2 (09:06→17:23)
[2018-02-06] MEDS: CITALOPRAM 20 MG TAB PO (09:07)
[2018-02-06] MEDS: AMLODIPINE 10 MG TAB PO (09:07)
[2018-02-06] MEDS: ASPIRIN 81 MG TAB PO (09:07)
[2018-02-06] MEDS: DAPTOMYCIN 500 MG in SOD CHLORIDE 0.9% 100 ML IVPB (11:57)
[2018-02-06] MEDS: ZOLPIDEM 5 MG TAB PO (23:12)
[2018-02-07] MEDS: LEVOFLOXACIN 250 MG TAB PO (05:42)
[2018-02-07] MEDS: HEPARIN 5,000 UNIT/0.5 ML VIAL SC ×3 (05:50→21:35)
[2018-02-07] MEDS: FERROUS SULFATE (EC) 325 MG TAB PO ×2 (08:19→17:41)
[2018-02-07] MEDS: INSULIN ASPART [NOVOLOG] 3 ML PEN SC ×8 (08:21→21:07)
[2018-02-07] MEDS: AMLODIPINE 10 MG TAB PO (09:05)
[2018-02-07] MEDS: ASPIRIN 81 MG TAB PO (09:05)
[2018-02-07] MEDS: MULTIVITAMINS THERAPEUTIC TAB PO (09:05)
[2018-02-07] MEDS: LACTOBACILLUS RHAMNOSUS CAP PO ×2 (09:05→21:02)
[2018-02-07] MEDS: CITALOPRAM 20 MG TAB PO (09:06)
[2018-02-07] MEDS: DAPTOMYCIN 500 MG in SOD CHLORIDE 0.9% 100 ML IVPB (11:51)
[2018-02-07 12:33] LABS: ANION GAP 14 (8-16); BLOOD UREA NITROGEN 66 mg/dl (7-20); CALCIUM 8.8 mg/dl (8.4-10.2); CARBON DIOXIDE 22 mmol/L (21-31); CHLORIDE 104 mmol/L (97-110); CREATININE 2.41 mg/dl (0.61-1.24); GLUCOSE 215 mg/dl (70-220); POTASSIUM 4.8 mmol/L (3.5-5.1); SODIUM 135 mmol/L (135-144)
[2018-02-07] MEDS: ZOLPIDEM 5 MG TAB PO (23:08)
[2018-02-08] MEDS: HEPARIN 5,000 UNIT/0.5 ML VIAL SC ×3 (06:18→22:05)
[2018-02-08] MEDS: LEVOFLOXACIN 250 MG TAB PO (06:19)
[2018-02-08 06:44] LABS: CREATINE KINASE 53 IU/L (23-200)
[2018-02-08] MEDS: INSULIN ASPART [NOVOLOG] 3 ML PEN SC ×7 (08:10→21:00)
[2018-02-08] MEDS: FERROUS SULFATE (EC) 325 MG TAB PO ×2 (08:11→17:26)
[2018-02-08] MEDS: AMLODIPINE 10 MG TAB PO (08:11)
[2018-02-08] MEDS: LACTOBACILLUS RHAMNOSUS CAP PO ×2 (08:11→20:54)
[2018-02-08] MEDS: ASPIRIN 81 MG TAB PO (08:11)
[2018-02-08] MEDS: CITALOPRAM 20 MG TAB PO (08:11)
[2018-02-08] MEDS: MULTIVITAMINS THERAPEUTIC TAB PO (08:12)
[2018-02-08] MEDS: DAPTOMYCIN 500 MG in SOD CHLORIDE 0.9% 100 ML IVPB (12:10)
[2018-02-08] MEDS: ZOLPIDEM 5 MG TAB PO (22:54)
[2018-02-09] MEDS: LEVOFLOXACIN 250 MG TAB PO (05:27)
[2018-02-09] MEDS: HEPARIN 5,000 UNIT/0.5 ML VIAL SC ×2 (05:30→20:32)
[2018-02-09 05:59] LABS: ADD MAN DIFF? NO
[2018-02-09 06:01] LABS: WHITE BLOOD COUNT 8.3 10^3/ul (4.8-10.8)
[2018-02-09 06:01] LABS: BASOPHIL # 0.1 10^3/ul (0.0-0.1); BASOPHILS % 0.7 % (0.0-2.0); EOSINOPHILS # 0.6 10^3/ul (0.0-0.5); EOSINOPHILS % 6.7 % (0.0-7.0); HEMOGLOBIN 10.9 g/dl (14.0-18.0); LYMPHOCYTES # 2.6 10^3/ul (0.8-2.9); LYMPHOCYTES % 31.3 % (15.0-51.0); MEAN CORPUSCULAR HEMOGLOBIN 30.1 pg (29.0-33.0); MEAN CORPUSCULAR HGB CONC 34.1 g/dl (32.0-37.0); MEAN CORPUSCULAR VOLUME 88.4 fl (82.0-101.0); MEAN PLATELET VOLUME 9.7 fl (7.4-10.4); MONOCYTE # 0.9 10^3/ul (0.3-0.9); MONOCYTES % 10.9 % (0.0-11.0); NEUTROPHIL # 4.1 10^3/ul (1.6-7.5); NEUTROPHILS % 49.9 % (39.0-77.0); PLATELET COUNT 216 10^3/UL (140-415); RED BLOOD COUNT 3.62 10^6/ul (4.70-6.10)
[2018-02-09 06:27] LABS: MAGNESIUM 2.2 mg/dl (1.7-2.5)
[2018-02-09 06:27] LABS: PHOSPHORUS 5.2 mg/dl (2.5-4.9)
[2018-02-09 06:42] LABS: ALANINE AMINOTRANSFERASE 57 IU/L (13-69); ALBUMIN 3.5 g/dl (3.3-4.9); ALBUMIN/GLOBULIN RATIO 1.09; ALKALINE PHOSPHATASE 111 IU/L (42-121); ANION GAP 13 (8-16); ASPARTATE AMINO TRANSFERASE 25 IU/L (15-46); BILIRUBIN,INDIRECT 0.2 mg/dl (0-1.1); BILIRUBIN,TOTAL 0.2 mg/dl (0.2-1.3); BLOOD UREA NITROGEN 63 mg/dl (7-20); CALCIUM 9.3 mg/dl (8.4-10.2); CARBON DIOXIDE 27 mmol/L (21-31); CHLORIDE 106 mmol/L (97-110); CREATININE 2.46 mg/dl (0.61-1.24); GLUCOSE 149 mg/dl (70-220); POTASSIUM 4.8 mmol/L (3.5-5.1); SODIUM 141 mmol/L (135-144); TOTAL PROTEIN 6.7 g/dl (6.1-8.1)
[2018-02-09] MEDS: MULTIVITAMINS THERAPEUTIC TAB PO (08:04)
[2018-02-09] MEDS: CITALOPRAM 20 MG TAB PO (08:05)
[2018-02-09] MEDS: LACTOBACILLUS RHAMNOSUS CAP PO ×2 (08:05→20:23)
[2018-02-09] MEDS: FERROUS SULFATE (EC) 325 MG TAB PO ×2 (08:05→17:36)
[2018-02-09] MEDS: ASPIRIN 81 MG TAB PO (08:05)
[2018-02-09] MEDS: AMLODIPINE 10 MG TAB PO (08:05)
[2018-02-09] MEDS: INSULIN ASPART [NOVOLOG] 3 ML PEN SC ×7 (08:06→20:36)
[2018-02-09] MEDS: LINAGLIPTIN 5 MG TABLET PO (08:10)
[2018-02-09] MEDS: DAPTOMYCIN 500 MG in SOD CHLORIDE 0.9% 100 ML IVPB (11:38)
[2018-02-09] MEDS: ZOLPIDEM 5 MG TAB PO (23:01)
[2018-02-10] MEDS: LEVOFLOXACIN 250 MG TAB PO (06:08)
[2018-02-10] MEDS: INSULIN ASPART [NOVOLOG] 3 ML PEN SC ×7 (07:59→21:00)
[2018-02-10] MEDS: LACTOBACILLUS RHAMNOSUS CAP PO ×2 (08:00→21:09)
[2018-02-10] MEDS: HEPARIN 5,000 UNIT/0.5 ML VIAL SC ×2 (08:00→21:16)
[2018-02-10] MEDS: LINAGLIPTIN 5 MG TABLET PO (08:00)
[2018-02-10] MEDS: ASPIRIN 81 MG TAB PO (08:01)
[2018-02-10] MEDS: CITALOPRAM 20 MG TAB PO (08:01)
[2018-02-10] MEDS: FERROUS SULFATE (EC) 325 MG TAB PO ×2 (08:01→16:55)
[2018-02-10] MEDS: AMLODIPINE 10 MG TAB PO (08:01)
[2018-02-10] MEDS: MULTIVITAMINS THERAPEUTIC TAB PO (08:08)
[2018-02-10] MEDS: DAPTOMYCIN 500 MG in SOD CHLORIDE 0.9% 100 ML IVPB (12:10)
[2018-02-11] MEDS: LEVOFLOXACIN 250 MG TAB PO (05:54)
[2018-02-11] MEDS: INSULIN ASPART [NOVOLOG] 3 ML PEN SC ×7 (08:00→20:46)
[2018-02-11] MEDS: LACTOBACILLUS RHAMNOSUS CAP PO ×2 (08:42→20:38)
[2018-02-11] MEDS: ASPIRIN 81 MG TAB PO (08:42)
[2018-02-11] MEDS: FERROUS SULFATE (EC) 325 MG TAB PO ×2 (08:42→17:33)
[2018-02-11] MEDS: AMLODIPINE 10 MG TAB PO (08:43)
[2018-02-11] MEDS: CITALOPRAM 20 MG TAB PO (08:43)
[2018-02-11] MEDS: LINAGLIPTIN 5 MG TABLET PO (08:43)
[2018-02-11] MEDS: MULTIVITAMINS THERAPEUTIC TAB PO (08:43)
[2018-02-11] MEDS: HEPARIN 5,000 UNIT/0.5 ML VIAL SC ×2 (08:47→20:46)
[2018-02-11] MEDS: DAPTOMYCIN 500 MG in SOD CHLORIDE 0.9% 100 ML IVPB (12:11)
[2018-02-12] MEDS: DOCUSATE SODIUM 100 MG CAP PO ×2 (00:06→14:42)
[2018-02-12] MEDS: LEVOFLOXACIN 250 MG TAB PO (05:22)
[2018-02-12 05:58] LABS: ADD MAN DIFF? NO
[2018-02-12 06:07] LABS: WHITE BLOOD COUNT 7.2 10^3/ul (4.8-10.8)
[2018-02-12 06:07] LABS: BASOPHILS % 0.6 % (0.0-2.0); EOSINOPHILS # 0.5 10^3/ul (0.0-0.5); EOSINOPHILS % 6.5 % (0.0-7.0); HEMATOCRIT 30.6 % (42.0-52.0); HEMOGLOBIN 10.4 g/dl (14.0-18.0); LYMPHOCYTES # 2.1 10^3/ul (0.8-2.9); LYMPHOCYTES % 29.5 % (15.0-51.0); MEAN CORPUSCULAR HEMOGLOBIN 30.1 pg (29.0-33.0); MEAN CORPUSCULAR VOLUME 88.7 fl (82.0-101.0); MEAN PLATELET VOLUME 9.6 fl (7.4-10.4); MONOCYTE # 0.9 10^3/ul (0.3-0.9); MONOCYTES % 12.2 % (0.0-11.0); NEUTROPHIL # 3.7 10^3/ul (1.6-7.5); NEUTROPHILS % 50.8 % (39.0-77.0); PLATELET COUNT 207 10^3/UL (140-415); RED BLOOD COUNT 3.45 10^6/ul (4.70-6.10)
[2018-02-12 06:34] LABS: MAGNESIUM 2.3 mg/dl (1.7-2.5)
[2018-02-12 06:34] LABS: PHOSPHORUS 5.6 mg/dl (2.5-4.9)
[2018-02-12 06:41] LABS: ANION GAP 12 (8-16); BLOOD UREA NITROGEN 79 mg/dl (7-20); CALCIUM 9.2 mg/dl (8.4-10.2); CARBON DIOXIDE 26 mmol/L (21-31); CHLORIDE 106 mmol/L (97-110); CREATININE 2.76 mg/dl (0.61-1.24); GLUCOSE 109 mg/dl (70-220); POTASSIUM 4.6 mmol/L (3.5-5.1); SODIUM 139 mmol/L (135-144)
[2018-02-12] MEDS: INSULIN ASPART [NOVOLOG] 3 ML PEN SC ×7 (08:00→21:00)
[2018-02-12] MEDS: ASPIRIN 81 MG TAB PO (09:27)
[2018-02-12] MEDS: HEPARIN 5,000 UNIT/0.5 ML VIAL SC ×2 (09:27→21:30)
[2018-02-12] MEDS: MULTIVITAMINS THERAPEUTIC TAB PO (09:27)
[2018-02-12] MEDS: FERROUS SULFATE (EC) 325 MG TAB PO ×2 (09:27→17:37)
[2018-02-12] MEDS: LINAGLIPTIN 5 MG TABLET PO (09:27)
[2018-02-12] MEDS: LACTOBACILLUS RHAMNOSUS CAP PO ×2 (09:27→21:29)
[2018-02-12] MEDS: CITALOPRAM 20 MG TAB PO (09:27)
[2018-02-12] MEDS: AMLODIPINE 10 MG TAB PO (09:28)
[2018-02-12] MEDS: SOD CHLORIDE 0.9% 1,000 ML IV ×2 (10:31→22:32)
[2018-02-12] MEDS: CALCIUM ACETATE 667 MG CAP PO ×2 (12:27→17:37)
[2018-02-12] MEDS: DAPTOMYCIN 500 MG in SOD CHLORIDE 0.9% 100 ML IVPB (12:27)
[2018-02-13] MEDS: LEVOFLOXACIN 250 MG TAB PO (05:38)
[2018-02-13 07:14] LABS: BLOOD UREA NITROGEN 73 mg/dl (7-20)
[2018-02-13 07:14] LABS: CREATININE 2.58 mg/dl (0.61-1.24)
[2018-02-13] MEDS: INSULIN ASPART [NOVOLOG] 3 ML PEN SC ×6 (08:00→17:05)
[2018-02-13] MEDS: AMLODIPINE 10 MG TAB PO (08:35)
[2018-02-13] MEDS: ASPIRIN 81 MG TAB PO (08:35)
[2018-02-13] MEDS: MULTIVITAMINS THERAPEUTIC TAB PO (08:35)
[2018-02-13] MEDS: CITALOPRAM 20 MG TAB PO (08:35)
[2018-02-13] MEDS: LACTOBACILLUS RHAMNOSUS CAP PO (08:35)
[2018-02-13] MEDS: CALCIUM ACETATE 667 MG CAP PO ×3 (08:35→17:03)
[2018-02-13] MEDS: FERROUS SULFATE (EC) 325 MG TAB PO ×2 (08:36→17:03)
[2018-02-13] MEDS: LINAGLIPTIN 5 MG TABLET PO (08:36)
[2018-02-13] MEDS: HEPARIN 5,000 UNIT/0.5 ML VIAL SC (08:40)
[2018-02-13] MEDS: DAPTOMYCIN 500 MG in SOD CHLORIDE 0.9% 100 ML IVPB (12:19)
[2018-02-13] MEDS ORDERED: L ACIDOPHIL/B LACTIS/B LONGUM CAPSULE PO (21:00)
[2018-02-13] MEDS ORDERED: CLINDAMYCIN 600 MG/D5W (PMX) 50 ML IVPB (22:00)
== END 2018-02-13 20:00 | DRG 559 ==
LOC: PP2 08:01
PROVIDERS: Family Medicine
PROC: 02HV33Z Insertion of Infusion Device into Superior Vena Cava, Percutaneous Approach (ICD-10-PCS; principal; 2018-01-28)
PROC: B548ZZA Ultrasonography of Superior Vena Cava, Guidance (ICD-10-PCS; 2018-01-28)
DX: T84.223A Displacement of internal fixation device of bones of foot and toes, initial encounter (principal); N17.0 Acute kidney failure with tubular necrosis; N18.4 Chronic kidney disease, stage 4 (severe); M86.172 Other acute osteomyelitis, left ankle and foot; M86.672 Other chronic osteomyelitis, left ankle and foot; I12.9 Hypertensive chronic kidney disease with stage 1 through stage 4 chronic kidney disease, or unspecified chronic kidney disease; E11.22 Type 2 diabetes mellitus with diabetic chronic kidney disease; D63.1 Anemia in chronic kidney disease; F32.9 Major depressive disorder, single episode, unspecified; Z89.422 Acquired absence of other left toe(s); E78.5 Hyperlipidemia, unspecified; L97.529 Non-pressure chronic ulcer of other part of left foot with unspecified severity; E11.42 Type 2 diabetes mellitus with diabetic polyneuropathy; E87.5 Hyperkalemia; E11.21 Type 2 diabetes mellitus with diabetic nephropathy; Z89.412 Acquired absence of left great toe; L03.032 Cellulitis of left toe; R62.7 Adult failure to thrive; M20.42 Other hammer toe(s) (acquired), left foot; E11.69 Type 2 diabetes mellitus with other specified complication; E11.51 Type 2 diabetes mellitus with diabetic peripheral angiopathy without gangrene; K59.00 Constipation, unspecified; F43.12 Post-traumatic stress disorder, chronic; F10.21 Alcohol dependence, in remission
CPT/HCPCS: 36569; 71045; 73718; 76937; 80048; 80053; 80061; 80202; 82550; 82565; 82962; 83036; 83735; 84100; 84520; 85025; 85651; 86140; 87040; 87081; 97161